=== PATIENT | male | born 1985 | race African-American/Black ===

== ENCOUNTER 2017-10-06 11:07 | Emergency (ER) | payer OTHER, BC ==
[2017-10-06 11:30] VITALS: BP 128/86
== END 2017-10-06 11:30 | disposition home or self-care (01) | DRG 605 ==
LOC: ED 11:07
DX: S00.83XA Contusion of other part of head, initial encounter (principal); S00.512A Abrasion of oral cavity, initial encounter; Y04.2XXA Assault by strike against or bumped into by another person, initial encounter; Y92.219 Unspecified school as the place of occurrence of the external cause; Y99.0 Civilian activity done for income or pay